=== PATIENT | male | born 1940 | race Caucasian/White ===

== ENCOUNTER 2022-07-09 21:34 | Inpatient (IN) | payer MEDICARE, BC ==
[~2022-07-09] VITALS: Ht 170.2 cm; Wt 44.5 kg
--- NOTE | 2022-07-09 21:40 | NUR ---
Dr Duron in room MSE in progress
--- NOTE | 2022-07-09 21:57 | NUR ---
Patient's niece at bedside
[2022-07-09] MEDS ORDERED: IV NORMAL SALINE 1000 ML BAG IV ONE (22:00)
[2022-07-09 22:54] LABS: CARBON DIOXIDE 26 mmol/L (21-32); CHLORIDE 102 mmol/L (98-107); CREATININE 1.1 mg/dL (0.6-1.3); GLUCOSE 77 mg/dL (74-106); POTASSIUM 3.8 mmol/L (3.5-5.1); UREA NITROGEN, BLOOD 25 mg/dL (7-18)
[2022-07-09 22:55] LABS: HEMATOCRIT 49.7 % (36.7-47.1); MEAN CORPUSCULAR HEMOGLOBIN 30.9 uug (23.8-33.4); MEAN CORPUSCULAR VOLUME 94.1 fL (73.0-96.2); PLATELET COUNT (AUTO) 298 K/uL (152-348)
[2022-07-09 23:07] LABS: ALANINE AMINOTRANSFERASE 22 U/L (16-63); ALKALINE PHOSPHATASE 111 U/L (50-136); ASPARTATE AMINOTRANSFERASE 41 U/L (15-37); BILIRUBIN,DIRECT 0.3 mg/dL (0.0-0.2); BILIRUBIN,TOTAL 0.9 mg/dL (0.2-1.0); TOTAL PROTEIN, SERUM 5.1 g/dL (6.4-8.2)
[2022-07-09] MEDS ORDERED: SWABABLE VALVE TRANSFER SET EA MC ONE (23:12)
[2022-07-09] MEDS ORDERED: IV NORMAL SALINE 250 ML IV ONE (23:12)
[2022-07-09] MEDS ORDERED: IOHEXOL 350 100 ML INFUS..BTL ONE (23:13)
[2022-07-09] MEDS: MAGNESIUM SULFATE/D5W 100 ML IV SCH ×2 (23:15→23:28)
[2022-07-09] MEDS ORDERED: ENOXAPARIN SODIUM 60 MG/0.6 ML DISP.SYRIN SQ ONE ×2 (23:15→23:17)
[2022-07-09] MEDS ORDERED: MAGNESIUM SULFATE/D5W 200 ML ONE (23:18)
--- NOTE | 2022-07-09 23:30 | NUR ---
Patient taken to CT
--- NOTE | 2022-07-09 23:54 | NUR ---
Patient back from CT
[2022-07-10] MEDS ORDERED: CEFTRIAXONE 1 G in IV DEXTROSE 5% 50 ML IV ONE (00:45)
[2022-07-10] MEDS ORDERED: AZITHROMYCIN IV 500 MG in IV DEXTROSE 5% 250 ML IV ONE (00:45)
[2022-07-10] MEDS ORDERED: AZITHROMYCIN 500MG/ D5W 250ML IVPB **ER PYXIS ONLY IV ONE (00:46)
[2022-07-10] MEDS ORDERED: CEFTRIAXONE /D5W 50ML IVPB **ER PYXIS IV ONE (00:46)
--- NOTE | 2022-07-10 01:04 | NUR ---
Patient felt nauseous after starting Zithromax. Dr Duron made aware
--- NOTE | 2022-07-10 01:05 | NUR ---
As per Dr Duron, ok to continue Zithromax IV
--- NOTE | 2022-07-10 01:06 | NUR ---
Dr Duron ordered Zofran 4mg IV
[2022-07-10] MEDS ORDERED: ONDANSETRON 4 MG/2 ML VIAL ONE (01:07)
[2022-07-10] MEDS ORDERED: ONDANSETRON 4 MG/2 ML VIAL IV ONE (01:15)
--- NOTE | 2022-07-10 01:41 | NUR ---
called [facility] for [facility] call
[2022-07-10] MEDS ORDERED: MAGNESIUM HYDROXIDE 30 ML LIQUID UDC PO PRN (02:15)
[2022-07-10] MEDS ORDERED: ACETAMINOPHEN 325 MG TABLET PO PRN (02:15)
[2022-07-10] MEDS ORDERED: ONDANSETRON 4 MG/2 ML VIAL IV PRN (02:15)
[2022-07-10] MEDS ORDERED: REMEDY ESSENTIAL ZINC PASTE 113 GM TP PRN (02:15)
--- NOTE | 2022-07-10 02:24 | NUR ---
report given to Adrianna FOWLER
--- NOTE | 2022-07-10 02:30 | NUR ---
Dr Duron speaking with Dr Nunn. Notified with PE
[2022-07-10 02:50] VITALS: BP 113/62
--- NOTE | 2022-07-10 02:58 | NUR ---
Pt. admitted to TELE room 310 , under care of Dr. Nunn Belongs List completed Adrianna RN aware of patient's arrival
--- NOTE | 2022-07-10 03:00 | NUR ---
Admitted a 82 years old male with Dx NSTEMI, Elevated D-dimer and Pneumonia. Patient AAOx4. In no acute distress. Denies any chest pain or SOB at this time. On 2LPM/NC sating at 97%. Chief complaint is shortness of breath. IV site on right AC 20 g intact and patent. SR on tele with HR of 92/min. Has sacral redness. Placed mepilex on area. Routine admission care done. Plan of care initiated. Safety measure initiated and call light within reached.
--- NOTE | 2022-07-10 04:10 | NUR ---
Received critical lab value of Troponin 114. Trending down from 140.
[2022-07-10] MEDS: PANTOPRAZOLE SODIUM 40 MG TABLET.DR PO SCH (06:44)
--- NOTE | 2022-07-10 08:00 | NUR ---
AWAKE LAERT AND ORIENTED X3 ON 3L NC SATURATING 95%. DENIES CP OR SOB. CONTINUE TELE MONITORING ORDERED
[2022-07-10] MEDS ORDERED: ENOXAPARIN SODIUM 60 MG/0.6 ML DISP.SYRIN SQ SCH (09:00)
[2022-07-10 11:00] VITALS: BP 90/65
[2022-07-10] MEDS: ENOXAPARIN SODIUM 40 MG/0.4 ML DISP.SYRIN SQ SCH ×2 (11:28→21:11)
--- NOTE | 2022-07-10 12:00 | NUR ---
NO ACUTE CHANGE FROM MORNING ASSESSMENT. REMAINS SR ON MONITOR
[2022-07-10] MEDS ORDERED: ATOR10TA PO (15:45)
[2022-07-10] MEDS ORDERED: LOSA50TA39 PO (15:45)
[2022-07-10 16:00] VITALS: BP 102/54
--- NOTE | 2022-07-10 16:46 | NUR ---
SEEN BY DR CRUZ FOR FOLLOW-UP SEE NOTES. PATIENT DENIES PAIN OR SOB.
--- NOTE | 2022-07-10 20:30 | NUR ---
Pt complained shortness of breathe. sating at 92%. Increased O2 to 3LPM. Now sating at 97%. Will continue to monitor.
[2022-07-10 20:36] VITALS: BP 104/55
--- NOTE | 2022-07-10 21:00 | NUR ---
Pt requested for sleeping aid. Dr. Dougherty ordered Restoril. Medication given as ordered.
[2022-07-10] MEDS: AZITHROMYCIN IV 500 MG in IV DEXTROSE 5% 250 ML IV SCH (21:09)
[2022-07-10] MEDS: ATORVASTATIN 10 MG TABLET PO SCH (21:10)
[2022-07-10] MEDS: TEMAZEPAM 15 MG CAPSULE PO PRN (21:10)
[2022-07-10] MEDS: CEFTRIAXONE 1 G in IV DEXTROSE 5% 50 ML IV SCH (23:02)
[2022-07-11 00:38] VITALS: BP 117/62
[2022-07-11 04:23] VITALS: BP 109/59
[2022-07-11] MEDS: PANTOPRAZOLE SODIUM 40 MG TABLET.DR PO SCH (06:06)
[2022-07-11 07:05] LABS: CREATININE 0.9 mg/dL (0.6-1.3); MAGNESIUM 1.8 mg/dL (1.8-2.4); PHOSPHOROUS 3.7 mg/dL (2.5-4.9); POTASSIUM 3.4 mmol/L (3.5-5.1)
[2022-07-11 07:19] LABS: THYROID STIMULATING HORMONE 6.525 mIU/mL (0.358-3.740)
[2022-07-11 07:25] LABS: HEMATOCRIT 44.7 % (36.7-47.1); MEAN CORPUSCULAR HEMOGLOBIN 31.4 uug (23.8-33.4); MEAN CORPUSCULAR VOLUME 92.5 fL (73.0-96.2); PLATELET COUNT (AUTO) 226 K/uL (152-348)
[2022-07-11] MEDS: ENOXAPARIN SODIUM 40 MG/0.4 ML DISP.SYRIN SQ SCH ×2 (08:14→21:27)
[2022-07-11] MEDS: METOPROLOL TARTRATE 25 MG TABLET PO SCH ×2 (08:16→21:16)
[2022-07-11] MEDS ORDERED: POTASSIUM CHLORIDE 50 ML IV SCH (08:45)
[2022-07-11 11:29] VITALS: BP 103/57
[2022-07-11] MEDS ORDERED: POTASSIUM CHLORIDE 10 MEQ, LIDOCAINE-MPF 1% 1 ML in IV DEXTROSE 5% 100 ML IV SCH (12:00)
[2022-07-11 16:37] VITALS: BP 98/53
[2022-07-11] MEDS: ENSURE ENLIVE (VAN) 240 ML LIQUID PO SCH (17:00)
--- NOTE | 2022-07-11 19:20 | NUR ---
Patient awake no sob no chest pain tele montor sinus rhythm 78, family at bedside, Patient family at bedside, Patient has moist cough, kept hob elevated, cont to monitor.
[2022-07-11 21:01] VITALS: BP 101/52
[2022-07-11] MEDS: CEFTRIAXONE 1 G in IV DEXTROSE 5% 50 ML IV SCH (21:11)
[2022-07-11] MEDS: ATORVASTATIN 10 MG TABLET PO SCH (21:15)
[2022-07-11] MEDS: AZITHROMYCIN IV 500 MG in IV DEXTROSE 5% 250 ML IV SCH (21:54)
[2022-07-11] MEDS: TEMAZEPAM 15 MG CAPSULE PO PRN (21:54)
[2022-07-12 00:13] VITALS: BP 113/61
[2022-07-12 04:28] LABS: *BILIRUBIN,URIN NEGATIVE (NEGATIVE); *BLOOD, URINE NEGATIVE (NEGATIVE); *CLARITY,URINE CLEAR (CLEAR); *COLOR,URINE YELLOW (YELLOW); *KETONES,URINE NEGATIVE (NEGATIVE); *UROBILINOGEN,URINE 0.2 E.U./dl (NORMAL); LEUKOCYTE ESTERASE ,URINE NEGATIVE (NEGATIVE); NITRITE, URINE NEGATIVE (NEGATIVE); UGLUCOSE NEGATIVE (NEGATIVE)
[2022-07-12 04:58] VITALS: BP 93/49
[2022-07-12] MEDS: PANTOPRAZOLE SODIUM 40 MG TABLET.DR PO SCH (06:22)
[2022-07-12] MEDS: ENSURE ENLIVE (VAN) 240 ML LIQUID PO SCH ×2 (08:00→16:31)
[2022-07-12] MEDS: ENOXAPARIN SODIUM 40 MG/0.4 ML DISP.SYRIN SQ SCH ×2 (08:07→21:07)
[2022-07-12] MEDS: METOPROLOL TARTRATE 25 MG TABLET PO SCH ×2 (08:08→21:00)
[2022-07-12 11:25] VITALS: BP 119/64
[2022-07-12] MEDS: DRONABINOL 2.5 MG CAPSULE PO SCH ×2 (13:17→16:31)
[2022-07-12 17:08] VITALS: BP 98/45
[2022-07-12 20:12] VITALS: BP 99/49
[2022-07-12] MEDS: IPRATROPIUM BROMIDE 0.5 MG/2.5 ML NEBU NEB SCH (20:48)
[2022-07-12] MEDS: ALBUTEROL SULFATE 1.25 MG/3 ML NEBU NEB SCH (20:49)
[2022-07-12] MEDS: CEFTRIAXONE 1 G in IV DEXTROSE 5% 50 ML IV SCH (21:05)
[2022-07-12] MEDS: AZITHROMYCIN IV 500 MG in IV DEXTROSE 5% 250 ML IV SCH ×2 (21:05→21:45)
[2022-07-12] MEDS: ATORVASTATIN 10 MG TABLET PO SCH (21:06)
[2022-07-12] MEDS: TEMAZEPAM 15 MG CAPSULE PO PRN (21:39)
[2022-07-13 00:06] VITALS: BP 98/50
[2022-07-13] MEDS: IPRATROPIUM BROMIDE 0.5 MG/2.5 ML NEBU NEB SCH ×3 (00:41→13:59)
[2022-07-13] MEDS: ALBUTEROL SULFATE 1.25 MG/3 ML NEBU NEB SCH ×3 (00:42→13:59)
[2022-07-13 04:12] VITALS: BP 101/45
[2022-07-13] MEDS: PANTOPRAZOLE SODIUM 40 MG TABLET.DR PO SCH (06:29)
[2022-07-13 06:35] LABS: HEMATOCRIT 44.1 % (36.7-47.1); MEAN CORPUSCULAR HEMOGLOBIN 31.2 uug (23.8-33.4); MEAN CORPUSCULAR VOLUME 92.7 fL (73.0-96.2); PLATELET COUNT (AUTO) 218 K/uL (152-348)
[2022-07-13 06:58] LABS: ALANINE AMINOTRANSFERASE 23 U/L (16-63); ALKALINE PHOSPHATASE 103 U/L (50-136); ASPARTATE AMINOTRANSFERASE 30 U/L (15-37); BILIRUBIN,TOTAL 0.4 mg/dL (0.2-1.0); CARBON DIOXIDE 34 mmol/L (21-32); CHLORIDE 102 mmol/L (98-107); CHOLESTEROL 108 mg/dL (<200); CREATININE 0.8 mg/dL (0.6-1.3); GLUCOSE 87 mg/dL (74-106); HDL CHOLESTEROL 41 mg/dL (40-60); MAGNESIUM 1.7 mg/dL (1.8-2.4); POTASSIUM 3.8 mmol/L (3.5-5.1); TOTAL PROTEIN, SERUM 4.4 g/dL (6.4-8.2); TRIGLYCERIDES 100 MG/DL (30-150); UREA NITROGEN, BLOOD 18 mg/dL (7-18)
[2022-07-13] MEDS: ENSURE ENLIVE (VAN) 240 ML LIQUID PO SCH (08:00)
[2022-07-13 08:14] LABS: ABG BASE EXCESS 1.1 mmol/L; ABG HCO3 26.4 mmol/L; ABG PCO2 44.2 mmHg (35.0-45.0); ABG PH 7.394 (7.350-7.450); ABG PO2 74.9 mmHg (75.0-100.0); ABG SITE RIGHT RADIAL; ABG TOTAL HEMOGLOBIN 15.5 G/dL (13.5-18.0); COHb 1.1 % (0.5-1.5); MetHb 0.3 % (0.0-1.5); O2Hb 94.1 % (94.0-97.0); VENT MODE Nasal Cannula
[2022-07-13] MEDS: DRONABINOL 2.5 MG CAPSULE PO SCH (08:15)
[2022-07-13] MEDS: METOPROLOL TARTRATE 25 MG TABLET PO SCH (08:15)
[2022-07-13] MEDS: ENOXAPARIN SODIUM 40 MG/0.4 ML DISP.SYRIN SQ SCH (08:20)
[2022-07-13] MEDS ORDERED: MAGNESIUM SULFATE/D5W 100 ML IV SCH (11:00)
[2022-07-13 11:29] VITALS: BP 101/53
[2022-07-13] MEDS ORDERED: METO25TA6 PO (15:00)
[2022-07-13] MEDS ORDERED: APIX2.5T PO (15:00)
[2022-07-13] MEDS ORDERED: ALBU1.25 NEB (15:00)
[2022-07-13] MEDS ORDERED: Dronabinol PO (15:00)
[2022-07-13] MEDS ORDERED: TEMA15CA PO (15:00)
[2022-07-13] MEDS ORDERED: LEVO25TA9 PO (15:00)
[2022-07-13] MEDS ORDERED: Lactose-Free Food PO (15:00)
[2022-07-13] MEDS ORDERED: PANT40TA49 PO (15:00)
[2022-07-13] MEDS ORDERED: IPRA0.2S6 NEB (15:00)
[2022-07-13] MEDS ORDERED: ACET325T53 PO (15:00)
[2022-07-13] MEDS ORDERED: FLUT1BLS IH (15:03)
--- NOTE | 2022-07-13 16:06 | NUR ---
DC ORDERS RECEIVED NOTED AND CARRIED OUT.DC HEPLOCK PER MD ORDERS.DC INSTRUCTION AND EDUCATION GIVEN TO THE PT AND HIS FAMILY.PT LEFT THE FACILITY VIA PRIVATE CAR IN STABLE CONDITION
[2022-07-14] MEDS ORDERED: LEVOTHYROXINE SODIUM 25 MCG TABLET PO SCH (07:00)
[2022-07-15 17:06] LABS: CRYPTOCOCCUS AB, SERUM Negative (Negative)
[2022-07-16 20:06] LABS: COCCIDIOIDES CF SERUM Negative (Neg:<1:2)
== END 2022-07-13 16:05 | disposition home health service (06) | DRG 871 ==
LOC: ER 21:37 → TELE3 07-10 02:41 → MEDSURG3 07-13 13:41
PROVIDERS: ADMIT Internal Medicine; ATTEND Internal Medicine
DX: A41.9 Sepsis, unspecified organism (principal); E43 Unspecified severe protein-calorie malnutrition; I26.99 Other pulmonary embolism without acute cor pulmonale; I21.4 Non-ST elevation (NSTEMI) myocardial infarction; J18.9 Pneumonia, unspecified organism; C78.7 Secondary malignant neoplasm of liver and intrahepatic bile duct; D68.59 Other primary thrombophilia; J44.0 Chronic obstructive pulmonary disease with (acute) lower respiratory infection; R64 Cachexia; C34.91 Malignant neoplasm of unspecified part of right bronchus or lung; J44.1 Chronic obstructive pulmonary disease with (acute) exacerbation; Z68.1 Body mass index [BMI] 19.9 or less, adult; E78.5 Hyperlipidemia, unspecified; R62.7 Adult failure to thrive; Z20.822 Contact with and (suspected) exposure to COVID-19; Z87.891 Personal history of nicotine dependence; Z85.819 Personal history of malignant neoplasm of unspecified site of lip, oral cavity, and pharynx; Z85.46 Personal history of malignant neoplasm of prostate; J44.9 Chronic obstructive pulmonary disease, unspecified; R13.10 Dysphagia, unspecified; Z92.3 Personal history of irradiation; N40.0 Benign prostatic hyperplasia without lower urinary tract symptoms; R59.0 Localized enlarged lymph nodes; Z74.09 Other reduced mobility; I11.0 Hypertensive heart disease with heart failure; I50.9 Heart failure, unspecified
CPT/HCPCS: 36415; 36600; 71045; 71275; 83735; 84100; 84443; 84484; 85025; 86606; 86803; 87040; 87328; 87806; 93005; 93307; 94640; 94664; A4663; A6209; G0378; J0456; J0696; J1650; J2001; J2405; J3475; J3480; J3590; J7040; J7050; Q0167; Q9967